=== PATIENT | male | born 1955 | race Caucasian/White ===

== ENCOUNTER 2017-12-19 17:55 | Observation (INO) | END 2017-12-21 13:00 | disposition home or self-care (01) ==

== ENCOUNTER 2018-07-18 00:27 | Inpatient (IN) | END 2018-07-19 20:40 | disposition left against medical advice (07) | DRG 313 ==

== ENCOUNTER 2018-08-23 07:22 | Day surgery (SDC) | END 2018-08-23 14:40 | disposition home or self-care (01) ==

== ENCOUNTER 2019-04-20 07:49 | Emergency (ER) | payer BC ==
[~2019-04-20] VITALS: Ht 170.2 cm; Wt 70.0 kg
[~2019-04-20 07:49] MED LIST: ASPI-817 PO; ASPI81TA52 PO; ATOR40TA68 PO; CARV12.579 PO; CLOP75TA27 PO; ERGO500013 PO; GABA300C16 PO; GLIP5TAB13 PO; LISI-471 PO; LORA10TA3 PO; METF100010 PO; NAPR-985 PO; ONDA4TAB8 PO
[2019-04-20 07:57] VITALS: Ht 170.2 cm; Wt 70.0 kg
--- NOTE | 2019-04-20 08:01 | ERD ---
ER Documentation Chief Complaint Chief Complaint HPI This is a 63-year-old man brought in by EMS from home for complaints of nausea, hypertension, chills occurring at home just prior to arrival. Symptoms lasted for about half an hour and then mostly resolved. Son who was at the bedside was mostly worried about his blood pressure going up while he was at home. Patient denied chest pain or shortness of breath, no fevers or chills, no vomiting or diarrhea, no complaints of headache or blurry vision. ROS All systems reviewed and are negative except as per history of present illness. Medications Home Meds Active Scripts Naproxen* (Naprosyn*) 500 Mg Tablet, 500 MG PO BID PRN for PAIN AND/OR INFLAMMATION, #30 TAB Prov:MERVIN LAYTON MD 04/20/19 Ondansetron Hcl* (Zofran*) 4 Mg Tablet, 4 MG PO Q8H PRN for NAUSEA AND/OR VOMITING, #30 TAB Prov:MERVIN LAYTON MD 04/20/19 Atorvastatin* (Atorvastatin*) 40 Mg Tablet, 40 MG PO QHS, #30 TAB Prov:TISH GUEVARA MD 12/21/17 Reported Medications Loratadine* (Loratadine*) 10 Mg Tablet, 10 MG PO DAILY, #30 TAB 08/23/18 Aspirin (Low Dose Aspirin) 81 Mg Tablet.dr, 81 MG PO DAILY, #30 TAB 08/23/18 Metformin Hcl* (Metformin Hcl*) 1,000 Mg Tablet, 1000 MG PO WITH BREAKFAST DINNE, #60 TAB 07/17/18 Gabapentin* (Gabapentin*) 300 Mg Capsule, 300 MG PO TID, #90 CAP 07/17/18 Ergocalciferol (Vitamin D2) (VITAMIN D2) 50,000 Unit Capsule, 86057 UNIT PO Q WED, CAP 07/17/18 Glipizide* (Glipizide*) 5 Mg Tablet, 5 MG PO TIDM A, TAB 07/17/18 Clopidogrel Bisulfate (Clopidogrel) 75 Mg Tablet, 75 MG PO DAILY, #30 TAB 12/19/17 Lisinopril* (Lisinopril*) 20 Mg Tablet, 20 MG PO DAILY, #30 TAB 12/19/17 Carvedilol* (Carvedilol*) 12.5 Mg Tablet, 12.5 MG PO BID, #60 TAB 12/19/17 Allergies Allergies: Coded Allergies: No Known Allergy (Unverified , 08/23/18) PMhx/Soc CAD with history of PTCA and stent placement, hypertension, dyslipidemia, cardiomyopathy with LVEF of 45%, diabetes mellitus, tobacco use, history of stroke with right upper extremity deficit History of Surgery: Yes ( hernia repair, cardiac) Anesthesia Reaction: No Hx Neurological Disorder: No Hx Respiratory Disorders: No Hx Cardiac Disorders: Yes (HTN, HEART ATTACK , CVA, ) Hx Psychiatric Problems: No Hx Miscellaneous Medical Probl: No Hx Alcohol Use: No Hx Substance Use: No Hx Tobacco Use: No FmHx Family History: No diabetes Physical Exam Vitals Vital Signs Date Temp Pulse Resp B/P (MAP) Pulse Ox O2 O2 Flow FiO2 Time Delivery Rate 04/20/19 97.7 74 18 185/88 99 07:57 (120) Per nurse's records Physical Exam GENERAL: Well-developed, well-nourished, well-hydrated, in no apparent distress, looks nontoxic in appearance NEURO: Alert and oriented 3, able to answer questions and follow commands, right upper extremity paresis, pupils equal round reactive to light CARDIAC: Regular rate and rhythm, no murmurs rubs or gallops LUNGS: Clear bilaterally no wheezing crackles or stridor ABDOMEN: Soft nontender, no guarding, no rigidity, no rebound, no psoas sign no obturator sign. SKIN: Warm and dry to touch, no abrasions, contusions, or hematomas, no lacera tions, no ecchymosis, no target lesions, and without ulcers Result Diagram: 04/20/19 0825 04/20/19 0825 Results 24 hrs Laboratory Tests Test 04/20/19 08:25 White Blood Count 6.5 10^3/ul Red Blood Count 4.67 10^6/ul Hemoglobin 13.8 g/dl Hematocrit 40.9 % Mean Corpuscular Volume 87.6 fl Mean Corpuscular Hemoglobin 29.6 pg Mean Corpuscular Hemoglobin Concent 33.7 g/dl Red Cell Distribution Width 12.9 % Platelet Count 221 10^3/UL Mean Platelet Volume 10.6 fl Immature Granulocytes % 0.300 % Neutrophils % 53.4 % Lymphocytes % 34.8 % Monocytes % 7.1 % Eosinophils % 3.9 % Basophils % 0.5 % Nucleated Red Blood Cells % 0.0 /100WBC Immature Granulocytes # 0.020 10^3/ul Neutrophils # 3.5 10^3/ul Lymphocytes # 2.3 10^3/ul Monocytes # 0.5 10^3/ul Eosinophils # 0.3 10^3/ul Basophils # 0.0 10^3/ul Nucleated Red Blood Cells # 0.0 10^3/ul Urine Color YELLOW Urine Clarity CLEAR Urine pH 8.0 Urine Specific [place] 1.012 Urine Ketones NEGATIVE mg/dL Urine Nitrite NEGATIVE mg/dL Urine Bilirubin NEGATIVE mg/dL Urine Urobilinogen NEGATIVE mg/dL Urine Leukocyte Esterase NEGATIVE Sixto/ul Urine Microscopic RBC 1 /HPF Urine Microscopic WBC 2 /HPF Urine Bacteria FEW /HPF Urine Hemoglobin NEGATIVE mg/dL Urine Glucose 3+ mg/dL Urine Total Protein 1+ mg/dl Sodium Level 141 mmol/L Potassium Level 4.8 mmol/L Chloride Level 100 mmol/L Carbon Dioxide Level 25 mmol/L Anion Gap 16 Blood Urea Nitrogen 21 mg/dl Creatinine 0.70 mg/dl Est Glomerular Filtrat Rate mL/min > 60 mL/min Glucose Level 320 mg/dl Calcium Level 10.5 mg/dl Total Bilirubin 0.5 mg/dl Direct Bilirubin 0.00 mg/dl Indirect Bilirubin 0.5 mg/dl Aspartate Amino Transf (AST/SGOT) 21 IU/L Alanine Aminotransferase (ALT/SGPT) 27 IU/L Alkaline Phosphatase 55 IU/L Troponin I 0.014 ng/ml Total Protein 8.7 g/dl Albumin 5.4 g/dl Globulin 3.30 g/dl Albumin/Globulin Ratio 1.63 Lipase 67 U/L Current Medications Medications Dose Sig/Matias Start Time Status Last (Trade) Ordered Route PRN Stop Time Admin Dose Reason Admin Sodium 1,000 ml @ Q1H STAT 04/20/19 DC 04/20/19 Chloride 1,000 mls/hr IV 08:05 04/20/19 08:39 09:04 Ondansetron 4 mg ONCE STAT 04/20/19 DC 04/20/19 HCl (Zofran IV 08:05 04/20/19 08:39 Inj) 08:06 Ketorolac 15 mg ONCE STAT 04/20/19 DC 04/20/19 Tromethamine IV 08:27 04/20/19 08:39 (Toradol) 08:28 Clonidine 0.1 mg ONCE ONCE 04/20/19 DC 04/20/19 (Catapres) PO 09:30 04/20/19 09:15 09:31 Procedures/MDM IV line was established patient was placed on quality assurance monitor chassis rhythm strip revealed a sinus rhythm at about 80 bpm with upright P and T waves. Patient was afebrile EKG performed, read by me: 76 bpm, normal sinus rhythm, normal axis, no acute ST segment changes, narrow QRS complex, with good R-wave progression in precordial leads. One AP view of the chest performed, read by me reveals no acute infiltrates, normal mediastinum, sharp costophrenic and cardiac borders, no air under the diaphragm. Otherwise unremarkable chest x-ray. I administered 500 cc normal saline IV and Zofran 4 mg IV. Patient later complained of low back pain I administered Toradol 15 mg IV, and for hypertension I administered clonidine 0.1 mg p.o. CBC was normal, electrolytes revealed dehydration, liver function tests normal, troponin negative, urinalysis unremarkable. Patient's blood pressure improved and he is asymptomatic now, vital signs are normal and he will be discharged to follow-up with PMD. Differential diagnoses considered, included but not limited to acute coronary syndrome, pulmonary embolism, aortic dissection, abdominal aortic aneurysm, sepsis, stroke, meningitis, encephalitis, pneumonia, appendicitis, cholec ystitis, bowel obstruction, pyelonephritis, nephrolithiasis, cystitis, as well as metabolic, hematologic, and electrolyte abnormalities. As well as abscess, cellulitis, fractures, and dislocations. Patient feels much better at this time, and vital signs are normal, symptoms have improved. I did give strict instructions to return to the ED if symptoms continue or worsen, patient will otherwise follow-up with primary care physician. Patient understood instructions and agreed to plan. Disclaimer: Inadvertent spelling and grammatical errors are likely due to EHR/dictation software use and do not reflect on the overall quality of patient care. Also, please note that the electronic time recorded on this note does not necessarily reflect the actual time of the patient encounter. Departure Diagnosis: Primary Impression: Hypertension Hypertension type: essential hypertension Qualified Codes: I10 - Essential (primary) hypertension Additional Impressions: Nausea Acute dehydration Condition: Good MERVIN LAYTON MD Apr 20, 2019 08:01
[2019-04-20] MEDS ORDERED: ONDANSETRON 4 MG INJ IV STA (08:05)
[2019-04-20] MEDS ORDERED: SOD CHLORIDE 0.9% 1,000 ML IV STA (08:05)
[2019-04-20] MEDS ORDERED: KETOROLAC 15 MG INJ IV STA (08:27)
[2019-04-20 10:00] VITALS: BP 154/85; PULSE 76; RESP 16
== END 2019-04-20 10:00 | disposition home or self-care (01) ==
LOC: E/R 07:49
DX: I10 Essential (primary) hypertension (principal); E86.0 Dehydration; E11.9 Type 2 diabetes mellitus without complications; I25.10 Atherosclerotic heart disease of native coronary artery without angina pectoris; Z79.01 Long term (current) use of anticoagulants; Z79.82 Long term (current) use of aspirin; Z86.73 Personal history of transient ischemic attack (TIA), and cerebral infarction without residual deficits; Z79.84 Long term (current) use of oral hypoglycemic drugs
CPT/HCPCS: 36415; 71045; 80053; 81001; 83690; 84484; 85025; 87086; 93005; 96361; 96374; 96375; 99285; J1885; J2405; J7030; Z7610

== ENCOUNTER 2019-04-21 01:51 | Inpatient (IN) | payer BC ==
[~2019-04-21] VITALS: Ht 170.2 cm; Wt 80.6 kg
[2019-04-21] MEDS ORDERED: SOD CHLORIDE 0.9% 1,000 ML IV STA (02:06)
[2019-04-21] MEDS ORDERED: HYDROmorphONE 1 MG/ML SYG IV STA (02:06)
[2019-04-21] MEDS ORDERED: ONDANSETRON 4 MG INJ IV STA (02:06)
--- NOTE | 2019-04-21 05:18 | ERD ---
ER Documentation Chief Complaint Chief Complaint ABD PAIN WITH N/V; SEEN EARLIER TODAY D/C 1200; DID NOT GET RXs HPI This is a 63-year-old male who was seen here this morning and discharged home. The patient said he is been having nausea vomiting throughout the day with right-sided abdominal and back pain. Patient says that he has had no hematuria no fever. No chest pain or shortness of breath. Here yesterday morning the patient received some fluids and pain medication and was discharged home. He said he continued to get worse so the pain is dull and sometimes sharp. He said he had nausea vomiting off and on for a day and a half ROS All systems reviewed and are negative except as per history of present illness. Medications Home Meds Active Scripts Naproxen* (Naprosyn*) 500 Mg Tablet, 500 MG PO BID PRN for PAIN AND/OR INFLAMMATION, #30 TAB Prov:MERVIN LAYTON MD 04/20/19 Ondansetron Hcl* (Zofran*) 4 Mg Tablet, 4 MG PO Q8H PRN for NAUSEA AND/OR VOMITING, #30 TAB Prov:MERVIN LAYTON MD 04/20/19 Atorvastatin* (Atorvastatin*) 40 Mg Tablet, 40 MG PO QHS, #30 TAB Prov:TISH GUEVARA MD 12/21/17 Reported Medications Loratadine* (Loratadine*) 10 Mg Tablet, 10 MG PO DAILY, #30 TAB 08/23/18 Aspirin (Low Dose Aspirin) 81 Mg Tablet.dr, 81 MG PO DAILY, #30 TAB 08/23/18 Metformin Hcl* (Metformin Hcl*) 1,000 Mg Tablet, 1000 MG PO WITH BREAKFAST DINNE, #60 TAB 07/17/18 Gabapentin* (Gabapentin*) 300 Mg Capsule, 300 MG PO TID, #90 CAP 07/17/18 Ergocalciferol (Vitamin D2) (VITAMIN D2) 50,000 Unit Capsule, 10266 UNIT PO Q WED, CAP 07/17/18 Glipizide* (Glipizide*) 5 Mg Tablet, 5 MG PO TIDM A, TAB 07/17/18 Clopidogrel Bisulfate (Clopidogrel) 75 Mg Tablet, 75 MG PO DAILY, #30 TAB 12/19/17 Lisinopril* (Lisinopril*) 20 Mg Tablet, 20 MG PO DAILY, #30 TAB 12/19/17 Carvedilol* (Carvedilol*) 12.5 Mg Tablet, 12.5 MG PO BID, #60 TAB 12/19/17 Allergies Allergies: Coded Allergies: No Known Allergy (Unverified , 08/23/18) PMhx/Soc History of Surgery: Yes ( hernia repair, cardiac) Anesthesia Reaction: No Hx Neurological Disorder: Yes (CVA) Hx Respiratory Disorders: No Hx Cardiac Disorders: Yes (HTN, HEART ATTACK ) Hx Psychiatric Problems: No Hx Miscellaneous Medical Probl: No Hx Alcohol Use: No Hx Substance Use: No Hx Tobacco Use: Yes Smoking Status: Former smoker FmHx Family History: No coronary disease Physical Exam Vitals Vital Signs Date Temp Pulse Resp B/P (MAP) Pulse Ox O2 O2 Flow FiO2 Time Delivery Rate 04/21/19 77 20 136/64 100 Nasal 2.0 05:23 (88) Cannula 04/21/19 98.3 77 20 146/83 100 Nasal 2.0 04:17 (104) Cannula 04/21/19 75 20 141/82 98 Room Air 02:00 (101) 04/21/19 99.0 73 19 156/82 100 01:54 (106) Physical Exam Const: Well-developed, well-nourished Head: Atraumatic, normocephalic Eyes: Normal Conjunctiva, PERRLA, EOMI, normal sclera, no nystagmus ENT: Normal External Ears, Nose and Mouth, moist mucus membranes. Neck: Full range of motion. No meningismus, no lymphadenopathy. Resp: Clear to auscultation bilaterally, no wheezing, rhonchi, rales Cardio: Regular rate and rhythm, no murmurs, S1 S2 present Abd: Soft, moderate right-sided abdominal tenderness in the mid abdomen, non distended. Normal bowel sounds, no guarding or rebound, no pulsitile abdominal masses or bruits Skin: No petechiae or rashes, no ecchymosis , no maculopapular rash Back: No midline or flank tenderness Ext: No cyanosis, or edema, FROM x 4, normal inspection, neurovascularly intact x 4 Neur: Awake and alert, STR 5/5 x 4, sensation intact x 4, no focal findings, cerebellum intact Psych: Normal Mood and Affect Result Diagram: 04/21/19 0155 04/21/19 0155 Results 24 hrs Laboratory Tests Test 04/21/19 01:55 04/21/19 04:53 04/21/19 05:15 White Blood Count 11.3 10^3/ul Red Blood Count 4.70 10^6/ul Hemoglobin 14.0 g/dl Hematocrit 41.0 % Mean Corpuscular Volume 87.2 fl Mean Corpuscular Hemoglobin 29.8 pg Mean Corpuscular 34.1 g/dl Hemoglobin Concent Red Cell Distribution Width 13.0 % Platelet Count 237 10^3/UL Mean Platelet Volume 10.6 fl Immature Granulocytes % 0.400 % Neutrophils % 80.8 % Lymphocytes % 11.0 % Monocytes % 5.5 % Eosinophils % 2.1 % Basophils % 0.2 % Nucleated Red Blood Cells % 0.0 /100WBC Immature Granulocytes # 0.050 10^3/ul Neutrophils # 9.1 10^3/ul Lymphocytes # 1.2 10^3/ul Monocytes # 0.6 10^3/ul Eosinophils # 0.2 10^3/ul Basophils # 0.0 10^3/ul Nucleated Red Blood Cells # 0.0 10^3/ul Sodium Level 138 mmol/L Potassium Level 4.6 mmol/L Chloride Level 101 mmol/L Carbon Dioxide Level 25 mmol/L Anion Gap 12 Blood Urea Nitrogen 19 mg/dl Creatinine 0.74 mg/dl Est Glomerular Filtrat > 60 mL/min Rate mL/min Glucose Level 222 mg/dl Calcium Level 9.8 mg/dl Total Bilirubin 0.8 mg/dl Direct Bilirubin 0.00 mg/dl Indirect Bilirubin 0.8 mg/dl Aspartate Amino 46 IU/L Transf (AST/SGOT) Alanine 33 IU/L Aminotransferase (ALT/SGPT) Alkaline Phosphatase 51 IU/L Total Protein 7.6 g/dl Albumin 4.7 g/dl Globulin 2.90 g/dl Albumin/Globulin Ratio 1.62 Lipase 55 U/L Urine Color STRAW Urine Clarity CLEAR Urine pH 5.0 Urine Specific [place] 1.033 Urine Ketones TRACE mg/dL Urine Nitrite NEGATIVE mg/dL Urine Bilirubin NEGATIVE mg/dL Urine Urobilinogen NEGATIVE mg/dL Urine Leukocyte Esterase NEGATIVE Sixto/ul Urine Microscopic RBC 3 /HPF Urine Microscopic WBC 2 /HPF Urine Hemoglobin 1+ mg/dL Urine Glucose 1+ mg/dL Urine Total Protein NEGATIVE mg/dl Bedside Urine pH (LAB) 5.0 Bedside Urine Protein (LAB) 1+ Bedside Urine Glucose (UA) 0.1% Bedside Urine Ketones (LAB) Trace Bedside Urine Blood Trace-intact Bedside Urine Nitrite (LAB) Negative Bedside Urine Leukocyte Esterase Negative (L Current Medications Medications Dose Sig/Matias Start Time Status Last (Trade) Ordered Route PRN Stop Time Admin Dose Reason Admin Sodium 1,000 ml @ Q1H STAT 04/21/19 DC 04/21/19 Chloride 1,000 mls/hr IV 02:06 04/21/19 02:18 03:05 1 mg ONCE STAT 04/21/19 DC 04/21/19 Hydromorphone IV 02:06 04/21/19 02:17 HCl 02:08 (Dilaudid) Ondansetron 4 mg ONCE STAT 04/21/19 DC 04/21/19 HCl (Zofran IV 02:06 04/21/19 02:17 Inj) 02:08 Procedures/[place] [id number] Radiology Main Line: [phone] DIAGNOSTIC IMAGING REPORT Patient: GERARDO BLUE : 1955 Age: 63 Sex: M MR #: [id number] DOS: 04/21/19 0206 Ordering MD: WILLIAM RICH DO Location: E/R Room/Bed: PROCEDURE: Ultrasound gallbladder CLINICAL INDICATION: abdominal pain TECHNIQUE: Jaime scale, color flow and Doppler ultrasound images of the abdomen. COMPARISON: None FINDINGS: Pancreas: Obscured by shadowing bowel gas. Liver: Demonstrates normal echotexture. No parenchymal lesions are identified. Normal directional flow toward the liver is demonstrated in the main portal vein. Gallbladder: Cholecystectomy. The gallbladder fossa is unremarkable. Biliary system: Common bile duct measures 7 mm diameter. No stones identified within the duct. No significant dilatation of the intrahepatic biliary system. Right Kidney: Measures 13.4 cm in length. No hydronephrosis, intrarenal calculus or abnormal perinephric fluid. Additional findings: None IMPRESSION: 1. Common bile duct slightly dilated for age, likely chronic postsurgical ectasia related to previous cholecystectomy. 2. No additional acute findings. RPTAT: [facility] Physician Erik Date Time Electronically viewed and signed by Physician Erik on 04/21/2019 03:20 xB/ CC: WILLIAM RICH DO [id number] [place] [id number] Radiology Main Line: [phone] DIAGNOSTIC IMAGING REPORT Patient: GERARDO BLUE : 1955 Age: 63 Sex: M MR #: [id number] DOS: 04/21/19 0206 Ordering MD: WILLIAM RICH DO Location: E/R Room/Bed: PROCEDURE: CT Abdomen and Pelvis with contrast. CLINICAL INDICATION: Right-sided abdominal pain TECHNIQUE: CT scan of the abdomen and pelvis with contrast was performed on a multi-detector high-resolution CT scanner. The patient was scanned following intravenous administration of 100 ml Omnipaque-300 nonionic contrast. Coronal and sagittal reformatted images obtained from the axial source images. Images were reviewed on a high-resolution PACS workstation. Exam CTDI 11.70 mGy Exam DLP 757.65 mGy-cm DICOM images are available. One or more of the following dose reduction techniques were utilized: 1.) Automated exposure control 2.) Adjustment of the mA +/- kV according to patient's size 3.) Use of iterative reconstruction technique. COMPARISON: None. FINDINGS: CT abdomen: LOWER THORAX: Lung bases are clear. LIVER AND GALLBLADDER: The liver is unremarkable. The gallbladder has been removed. SPLEEN: Normal. PANCREAS: Normal. ADRENAL GLANDS: Normal. KIDNEYS: There are multiple areas of diminished enhancement throughout the right renal parenchyma, most prominently involving the posterior and lateral cortex. Multiple small cortical cysts are identified. No hydronephrosis and no evidence of a perinephric abscess. There are small cortical cysts within the lateral aspect of the left kidney. Ureters as visualized are unremarkable. VASCULATURE: Atherosclerotic calcifications throughout the nondilated abdominal aorta. There are bilateral common iliac artery stents. LYMPH NODES: No significant retroperitoneal or mesenteric lymphadenopathy. BOWEL AND MESENTERY: Mild mucosal hyperenhancement throughout this stomach. Small bowel is unremarkable and there is no evidence for obstruction. A normal appendix is identified. Large bowel is unremarkable. CT pelvis: There is trace free fluid in the pelvis. The urinary bladder is unremarkable. No significant pelvic lymphadenopathy. Bones: Vacuum changes and disc degeneration at L5 S1. Small marginal osteophytes present in the lower thoracic and lumbar spine. IMPRESSION: 1. Multiple areas of diminished enhancement within the right kidney, most likely indicating pyelonephritis, differential includes renal infarct. No associated hydronephrosis or evidence of a perinephric abscess. 2. Mild mucosal hyperenhancement throughout the stomach, question gastritis. 3. Aortic and coronary atherosclerosis. Bilateral common iliac artery stents. 4. Post cholecystectomy. Results called to Dr. Rich at 4:35 am on 04/21/2019. RPTAT: [facility] Physician Erik Date Time Electronically viewed and signed by Physician Erik on 04/21/2019 04:41 xB/ CC: WILLIAM RICH DO [id number] The patient only has a few white cells in his urine and is unlikely he has Adi but it still possible. He could also have a renal infarct as I discussed this with the radiologist. Will admit to the hospital for IV antibiotics he may need further work-up for this renal infarct possibility. Departure Diagnosis: Primary Impression: Flank pain Additional Impressions: Pyelonephritis Renal infarct Condition: Stable WILLIAM RICH DO Apr 21, 2019 05:18
[2019-04-21] MEDS ORDERED: CEFTRIAXONE 1 GM/50 ML (PMX) 50 ML IVPB STA (05:29)
[2019-04-21] MEDS ORDERED: SOD CHLORIDE 0.9% 1,000 ML IV SCH (05:34)
[2019-04-21] MEDS: ONDANSETRON 4 MG INJ IV PRN ×2 (05:58→07:20)
[2019-04-21] MEDS ORDERED: ACETAMINOPHEN 325 MG TAB PO PRN (06:00)
[2019-04-21] MEDS ORDERED: SOD CHLORIDE 0.9% 100 ML ONE (06:17)
[2019-04-21] MEDS ORDERED: IOHEXOL 300MG/ML 150 ML BTL ONE (06:17)
[2019-04-21] MEDS: morphine 2 MG INJ IV PRN ×4 (07:21→23:27)
[2019-04-21 09:15] VITALS: BP_DIAS 73
[2019-04-21 09:20] VITALS: Ht 170.2 cm; Wt 80.6 kg
[2019-04-21] MEDS ORDERED: DEXTROSE 50% 50 ML SYRINGE IV PRN ×2 (10:00)
[2019-04-21] MEDS ORDERED: GLUCOSE GEL 15 GRAM TUBE PO PRN ×2 (10:00)
[2019-04-21] MEDS ORDERED: GLUCOSE GEL 15 GRAM TUBE BUCCAL PRN (10:00)
[2019-04-21] MEDS ORDERED: GLUCAGON 1 MG INJ IM PRN (10:00)
--- NOTE | 2019-04-21 13:16 | HP ---
Date/Time of Note Date/Time of Note DATE: 04/21/19 TIME: 13:15 Assessment/Plan VTE Prophylaxis Pharmacological prophylaxis: LMWH Lines/Catheters IV Catheter Type (from Nrs): Peripheral IV Urinary Cath still in place: No Assessment/Plan Hospital Course 1) UTI - IV antibiotics 2) diabetes - monitor blood sugar Result Diagram: 04/21/19 0155 04/21/19 0155 Results 24hrs Laboratory Tests Test 04/21/19 01:55 04/21/19 04:53 04/21/19 05:15 04/21/19 12:55 White Blood Count 11.3 #H Red Blood Count 4.70 Hemoglobin 14.0 Hematocrit 41.0 L Mean Corpuscular 87.2 Volume Mean Corpuscular 29.8 Hemoglobin Mean Corpuscular 34.1 Hemoglobin Concent Red Cell Distribution 13.0 Width Platelet Count 237 Mean Platelet Volume 10.6 H Immature Granulocytes 0.400 % Neutrophils % 80.8 H Lymphocytes % 11.0 L Monocytes % 5.5 Eosinophils % 2.1 Basophils % 0.2 Nucleated Red Blood 0.0 Cells % Immature Granulocytes 0.050 H # Neutrophils # 9.1 H Lymphocytes # 1.2 Monocytes # 0.6 Eosinophils # 0.2 Basophils # 0.0 Nucleated Red Blood 0.0 Cells # Sodium Level 138 Potassium Level 4.6 Chloride Level 101 Carbon Dioxide Level 25 Anion Gap 12 Blood Urea Nitrogen 19 Creatinine 0.74 Est Glomerular > 60 Filtrat Rate mL/min Glucose Level 222 H Calcium Level 9.8 Total Bilirubin 0.8 Direct Bilirubin 0.00 Indirect Bilirubin 0.8 Aspartate Amino 46 # Transf (AST/SGOT) Alanine 33 Aminotransferase (ALT /SGPT) Alkaline Phosphatase 51 Total Protein 7.6 # Albumin 4.7 Globulin 2.90 Albumin/Globulin 1.62 Ratio Lipase 55 Urine Color STRAW Urine Clarity CLEAR Urine pH 5.0 Urine Specific 1.033 H Kulm Urine Ketones TRACE A Urine Nitrite NEGATIVE Urine Bilirubin NEGATIVE Urine Urobilinogen NEGATIVE Urine Leukocyte NEGATIVE Esterase Urine Microscopic RBC 3 Urine Microscopic WBC 2 Urine Hemoglobin 1+ H Urine Glucose 1+ H Urine Total Protein NEGATIVE Bedside Urine pH 5.0 (LAB) Bedside Urine Protein 1+ H (LAB) Bedside Urine Glucose 0.1% H (UA) Bedside Urine Ketones Trace H (LAB) Bedside Urine Blood Trace-intact H Bedside Urine Nitrite Negative (LAB) Bedside Urine Negative Leukocyte Esterase (L Bedside Glucose 270 H HPI/ROS Admit Date/Time Admit Date/Time Apr 21, 2019 at 05:36 Hx of Present Illness Patient with hypertension and diabetes comes in with severe pain in right abdomen and flank. Patient was found to have pyelonephritis and admitted for antibiotics. PMH/Family/Social Past Medical History Medical History: diabetes, hypertension Medications Current Medications Sodium Chloride 1,000 ml @ 80 mls/hr [id number] IV Last administered on 04/21/19at 05:58; Admin Dose 80 MLS/HR; Start 04/21/19 at 05:34; Stop 04/21/19 at 18:03 Morphine Sulfate (morphine) 2 mg Q4 PRN IV PAIN LEVEL 7-10 Last administered on 04/21/19at 11:21; Admin Dose 2 MG; Start 04/21/19 at 07:30 Diagnostic Test (Pha) (Accu-Chek) 1 ea 02 XX ; Start 04/22/19 at 02:00 Insulin Aspart (Novolog Insulin Pen) NOVOLOG *MODERATE* ALGORITHM WITH MEALS BEDTIME SC ; Start 04/21/19 at 11:40 Miscellaneous Information 1 ea NOTE XX ; Start 04/21/19 at 10:00 Glucose (Glutose) 15 gm Q15M PRN PO DECREASED GLUCOSE; Start 04/21/19 at 10:00 Glucose (Glutose) 22.5 gm Q15M PRN PO DECREASED GLUCOSE; Start 04/21/19 at 10:00 Dextrose (D50w Syringe) 25 ml Q15M PRN IV DECREASED GLUCOSE; Start 04/21/19 at 10:00 Dextrose (D50w Syringe) 50 ml Q15M PRN IV DECREASED GLUCOSE; Start 04/21/19 at 10:00 Glucagon (Glucagen) 1 mg Q15M PRN IM DECREASED GLUCOSE; Start 04/21/19 at 10:00 Glucose (Glutose) 15 gm Q15M PRN BUCCAL DECREASED GLUCOSE; Start 04/21/19 at 10:00 Coded Allergies: No Known Allergy (Unverified , 04/21/19) Past Surgical History Past Surgical Hx: cholecystectomy Family History Significant Family History: no pertinent family hx Social History Smoking Status: Former smoker Exam/Review of Systems Vital Signs Vitals Vital Signs Date Temp Pulse Resp B/P (MAP) Pulse Ox O2 O2 Flow FiO2 Time Delivery Rate 8/5/19 98.6 86 138/73 98 Room Air 09:15 (94) 04/21/19 18 2.0 07:38 Exam Constitutional: well developed Head: normocephalic, atraumatic Neck: supple Respiratory: diminished breath sounds Cardiovascular: regular rate and rhythm Gastrointestinal: soft, non-tender Extremities: normal pulses MIRNA MILLS Apr 21, 2019 13:16
[2019-04-21] MEDS: INSULIN ASPART [NOVOLOG] 3 ML PEN SC SCH ×3 (13:51→21:00)
[2019-04-21] MEDS: ASPIRIN (EC) 81 MG TAB PO SCH (13:58)
[2019-04-21] MEDS: HYDROCODONE/APAP (5/325) TAB PO PRN ×2 (13:59→20:47)
[2019-04-21] MEDS: CLOPIDOGREL 75 MG TAB PO SCH (14:01)
[2019-04-21 15:38] VITALS: BP 138/61; PULSE 82; RESP 19
[2019-04-21] MEDS: metFORMIN 500 MG TAB PO SCH (18:16)
[2019-04-21] MEDS: SOD CHLORIDE 0.9% 1,000 ML IV SCH (18:58)
[2019-04-21 19:55] VITALS: BP 131/79; PULSE 81; RESP 18
[2019-04-22] MEDS: ACCU-CHEK XX SCH (02:00)
[2019-04-22 02:05] VITALS: BP 123/64; PULSE 82; RESP 18
[2019-04-22] MEDS: HYDROCODONE/APAP (5/325) TAB PO PRN ×3 (02:23→17:12)
[2019-04-22] MEDS: CEFTRIAXONE 1 GM/50 ML (PMX) 50 ML IVPB SCH (05:27)
[2019-04-22] MEDS: morphine 2 MG INJ IV PRN ×5 (05:30→22:04)
[2019-04-22] MEDS: SOD CHLORIDE 0.9% 1,000 ML IV SCH ×2 (07:30→12:53)
[2019-04-22 07:39] VITALS: BP 121/62; PULSE 72; RESP 19
[2019-04-22] MEDS: CLOPIDOGREL 75 MG TAB PO SCH (08:27)
[2019-04-22] MEDS: ASPIRIN (EC) 81 MG TAB PO SCH (08:27)
[2019-04-22] MEDS: LISINOPRIL 20 MG TAB PO SCH (08:28)
[2019-04-22] MEDS: INSULIN ASPART [NOVOLOG] 3 ML PEN SC SCH ×4 (08:29→21:00)
[2019-04-22] MEDS: glipiZIDE 5 MG TAB PO SCH (08:34)
[2019-04-22] MEDS: metFORMIN 500 MG TAB PO SCH ×2 (08:34→17:55)
--- NOTE | 2019-04-22 14:19 | PN ---
Date/Time of Note Date/Time of Note DATE: 04/22/19 TIME: 14:18 Assessment/Plan VTE Prophylaxis Risk score (from Ns)>0 risk: 2 SCD applied (from Ns): Yes Pharmacological prophylaxis: LMWH Lines/Catheters IV Catheter Type (from Nrs): [place] Urinary Cath still in place: No Assessment/Plan Hospital Course 1) UTI - IV antibiotics 2) diabetes - monitor blood sugar Result Diagram: 04/22/19 0425 04/22/19 0425 Results 24hrs Laboratory Tests Test 04/21/19 17:50 04/21/19 20:41 04/22/19 04:25 04/22/19 08:26 Bedside Glucose 232 H 185 202 White Blood Count 10.5 Red Blood Count 3.92 L Hemoglobin 11.7 L Hematocrit 35.0 L Mean Corpuscular Volume 89.3 Mean Corpuscular 29.8 Hemoglobin Mean Corpuscular 33.4 Hemoglobin Concent Red Cell Distribution 13.2 Width Platelet Count 186 # Mean Platelet Volume 10.7 H Immature Granulocytes % 0.600 H Neutrophils % 78.0 H Lymphocytes % 12.2 L Monocytes % 7.1 Eosinophils % 1.8 Basophils % 0.3 Nucleated Red Blood 0.0 Cells % Immature Granulocytes # 0.060 H Neutrophils # 8.2 H Lymphocytes # 1.3 Monocytes # 0.7 Eosinophils # 0.2 Basophils # 0.0 Nucleated Red Blood 0.0 Cells # Sodium Level 135 Potassium Level 4.2 Chloride Level 102 Carbon Dioxide Level 29 Anion Gap 4 #L Blood Urea Nitrogen 14 Creatinine 0.70 Est Glomerular Filtrat > 60 Rate mL/min Glucose Level 209 Calcium Level 8.6 Test 04/22/19 12:52 Bedside Glucose 149 Subjective 24 Hr Interval Summary Free Text/Dictation Patient's flank pain seems to be improved Exam/Review of Systems Exam Vitals Vital Signs Date Temp Pulse Resp B/P (MAP) Pulse Ox O2 O2 Flow FiO2 Time Delivery Rate 04/22/19 98.2 72 19 121/62 97 07:39 (81) 04/21/19 Room Air 09:15 04/21/19 2.0 07:38 Intake and Output 04/21/19 04/21/19 04/22/19 1515:00 23:00 07:00 IntakeIntake Total 1480 ml 150 ml BalanceBalance 1480 ml 150 ml Constitutional: well developed Head: normocephalic, atraumatic Neck: supple Respiratory: diminished breath sounds Cardiovascular: regular rate and rhythm Gastrointestinal: soft, non-tender Extremities: normal pulses Results Results 24hrs Laboratory Tests Test 04/21/19 17:50 04/21/19 20:41 04/22/19 04:25 04/22/19 08:26 Bedside Glucose 232 H 185 202 White Blood Count 10.5 Red Blood Count 3.92 L Hemoglobin 11.7 L Hematocrit 35.0 L Mean Corpuscular Volume 89.3 Mean Corpuscular 29.8 Hemoglobin Mean Corpuscular 33.4 Hemoglobin Concent Red Cell Distribution 13.2 Width Platelet Count 186 # Mean Platelet Volume 10.7 H Immature Granulocytes % 0.600 H Neutrophils % 78.0 H Lymphocytes % 12.2 L Monocytes % 7.1 Eosinophils % 1.8 Basophils % 0.3 Nucleated Red Blood 0.0 Cells % Immature Granulocytes # 0.060 H Neutrophils # 8.2 H Lymphocytes # 1.3 Monocytes # 0.7 Eosinophils # 0.2 Basophils # 0.0 Nucleated Red Blood 0.0 Cells # Sodium Level 135 Potassium Level 4.2 Chloride Level 102 Carbon Dioxide Level 29 Anion Gap 4 #L Blood Urea Nitrogen 14 Creatinine 0.70 Est Glomerular Filtrat > 60 Rate mL/min Glucose Level 209 Calcium Level 8.6 Test 04/22/19 12:52 Bedside Glucose 149 Medications Medication Current Medications Morphine Sulfate (morphine) 2 mg Q4 PRN IV PAIN LEVEL 7-10 Last administered on 04/22/19at 13:47; Admin Dose 2 MG; Start 04/21/19 at 07:30 Diagnostic Test (Pha) (Accu-Chek) 1 ea 02 XX ; Start 04/22/19 at 02:00 Insulin Aspart (Novolog Insulin Pen) NOVOLOG *MODERATE* ALGORITHM WITH MEALS BEDTIME SC Last administered on 04/22/19at 08:29; Admin Dose 4 UNIT; Start 04/21/19 at 11:40 Miscellaneous Information 1 ea NOTE XX ; Start 04/21/19 at 10:00 Glucose (Glutose) 15 gm Q15M PRN PO DECREASED GLUCOSE; Start 04/21/19 at 10:00 Glucose (Glutose) 22.5 gm Q15M PRN PO DECREASED GLUCOSE; Start 04/21/19 at 10:00 Dextrose (D50w Syringe) 25 ml Q15M PRN IV DECREASED GLUCOSE; Start 04/21/19 at 10:00 Dextrose (D50w Syringe) 50 ml Q15M PRN IV DECREASED GLUCOSE; Start 04/21/19 at 10:00 Glucagon (Glucagen) 1 mg Q15M PRN IM DECREASED GLUCOSE; Start 04/21/19 at 10:00 Glucose (Glutose) 15 gm Q15M PRN BUCCAL DECREASED GLUCOSE; Start 04/21/19 at 10:00 Ceftriaxone Sodium 50 ml @ 100 mls/hr Q24H IVPB Last administered on 04/22/19 05:27; Admin Dose 100 MLS/HR; Start 04/22/19 at 06:00 Acetaminophen/ Hydrocodone Bitart ([place] (5/325)) 1 tab Q6H PRN PO MODERATE PAIN LEVEL 4-6 Last administered on 04/22/19 08:34; Admin Dose 1 TAB; Start 04/21/19 at 13:30 Aspirin (Halfprin) 81 mg DAILY PO Last administered on 04/22/19 08:27; Admin Dose 81 MG; Start 04/21/19 at 13:30 Carvedilol (Coreg) 12.5 mg BID PO Last administered on 04/22/19 08:27; Admin Dose 12.5 MG; Start 04/21/19 at 21:00 Clopidogrel Bisulfate (plaVIX) 75 mg DAILY PO Last administered on 04/22/19 08:27; Admin Dose 75 MG; Start 04/21/19 at 13:30 Glipizide (Glucotrol) 5 mg AC BREAKFAST PO Last administered on 04/22/19 08:34; Admin Dose 5 MG; Start 04/22/19 at 07:20 Lisinopril (Zestril) 20 mg DAILY PO Last administered on 04/22/19 08:28; Admin Dose 20 MG; Start 04/22/19 at 09:00 Metformin HCl (Glucophage) 1,000 mg WITH BREAKFAST DINNE PO Last administered on 04/22/19 08:34; Admin Dose 1,000 MG; Start 04/21/19 at 17:55 Sodium Chloride 1,000 ml @ 80 mls/hr [id number] IV Last administered on 04/22/19at 12:53; Admin Dose 80 MLS/HR; Start 04/21/19 at 19:00 MIRNA MILLS 6, 2019 14:19
[2019-04-22 20:00] VITALS: BP 98/51; PULSE 75; RESP 17
[2019-04-23] MEDS: ACCU-CHEK XX SCH (02:00)
[2019-04-23] MEDS: morphine 2 MG INJ IV PRN ×3 (02:08→10:08)
[2019-04-23 02:10] VITALS: BP 125/68; PULSE 89; RESP 18
[2019-04-23] MEDS: ACETAMINOPHEN 325 MG TAB PO PRN ×2 (02:10→08:51)
[2019-04-23] MEDS: SOD CHLORIDE 0.9% 1,000 ML IV SCH ×2 (05:39→20:46)
[2019-04-23] MEDS: CEFTRIAXONE 1 GM/50 ML (PMX) 50 ML IVPB SCH (05:40)
[2019-04-23] MEDS: HYDROCODONE/APAP (5/325) TAB PO PRN ×3 (06:48→19:38)
[2019-04-23 07:10] VITALS: BP 112/51; PULSE 83; RESP 16
[2019-04-23] MEDS: INSULIN ASPART [NOVOLOG] 3 ML PEN SC SCH ×4 (07:50→20:49)
[2019-04-23] MEDS: CLOPIDOGREL 75 MG TAB PO SCH (08:50)
[2019-04-23] MEDS: ASPIRIN (EC) 81 MG TAB PO SCH (08:51)
[2019-04-23] MEDS: glipiZIDE 5 MG TAB PO SCH (08:51)
[2019-04-23] MEDS: LISINOPRIL 20 MG TAB PO SCH (08:52)
[2019-04-23] MEDS: metFORMIN 500 MG TAB PO SCH ×2 (08:58→18:03)
--- NOTE | 2019-04-23 11:08 | PN ---
Date/Time of Note Date/Time of Note DATE: 04/23/19 TIME: 11:08 Assessment/Plan VTE Prophylaxis Risk score (from Ns)>0 risk: 3 SCD applied (from Ns): Yes Pharmacological prophylaxis: LMWH Lines/Catheters IV Catheter Type (from [facility] Peripheral IV Urinary Cath still in place: No Assessment/Plan Hospital Course 1) UTI - IV antibiotics 2) diabetes - monitor blood sugar Result Diagram: 04/23/19 0236 04/23/19 0236 Results 24hrs Laboratory Tests Test 04/22/19 12:52 04/22/19 17:14 04/22/19 20:54 04/23/19 02:15 Bedside Glucose 149 127 124 Urine Color MISAEL Urine Clarity CLEAR Urine pH 5.0 Urine Specific [place] 1.023 Urine Ketones TRACE A Urine Nitrite NEGATIVE Urine Bilirubin NEGATIVE Urine Urobilinogen NEGATIVE Urine Leukocyte Esterase NEGATIVE Urine Microscopic RBC 1 Urine Microscopic WBC 2 Urine Squamous FEW Epithelial Cells Urine Mucus FEW A Urine Hemoglobin NEGATIVE Urine Glucose 1+ H Urine Total Protein 1+ H Test 04/23/19 02:35 04/23/19 02:36 04/23/19 08:31 Lactic Acid Level 1.0 White Blood Count 12.9 #H Red Blood Count 3.88 L Hemoglobin 11.6 L Hematocrit 35.1 L Mean Corpuscular Volume 90.5 Mean Corpuscular 29.9 Hemoglobin Mean Corpuscular 33.0 Hemoglobin Concent Red Cell Distribution 13.2 Width Platelet Count 189 Mean Platelet Volume 10.3 Immature Granulocytes % 0.500 H Neutrophils % 84.7 H Lymphocytes % 7.8 L Monocytes % 6.3 Eosinophils % 0.5 Basophils % 0.2 Nucleated Red Blood 0.0 Cells % Immature Granulocytes # 0.060 H Neutrophils # 10.9 H Lymphocytes # 1.0 Monocytes # 0.8 Eosinophils # 0.1 Basophils # 0.0 Nucleated Red Blood 0.0 Cells # Sodium Level 137 Potassium Level 4.3 Chloride Level 102 Carbon Dioxide Level 26 Anion Gap 9 # Blood Urea Nitrogen 20 Creatinine 0.91 Est Glomerular Filtrat > 60 Rate mL/min Glucose Level 137 # Calcium Level 8.6 Bedside Glucose 132 Subjective 24 Hr Interval Summary Free Text/Dictation Patient still have pain in right flank Exam/Review of Systems Exam Vitals Vital Signs Date Temp Pulse Resp B/P (MAP) Pulse Ox O2 O2 Flow FiO2 Time Delivery Rate 04/23/19 99.9 08:51 04/23/19 83 16 112/51 96 Room Air 07:10 (71) 04/21/19 2.0 07:38 Intake and Output 04/22/19 04/22/19 04/23/19 1515:00 23:00 07:00 IntakeIntake Total 1150 ml 200 ml 1200 ml BalanceBalance 1150 ml 200 ml 1200 ml Constitutional: well developed Head: normocephalic, atraumatic Neck: supple Respiratory: diminished breath sounds Cardiovascular: regular rate and rhythm Gastrointestinal: soft, non-tender Extremities: normal pulses Results Results 24hrs Laboratory Tests Test 04/22/19 12:52 04/22/19 17:14 04/22/19 20:54 04/23/19 02:15 Bedside Glucose 149 127 124 Urine Color MISAEL Urine Clarity CLEAR Urine pH 5.0 Urine Specific [place] 1.023 Urine Ketones TRACE A Urine Nitrite NEGATIVE Urine Bilirubin NEGATIVE Urine Urobilinogen NEGATIVE Urine Leukocyte Esterase NEGATIVE Urine Microscopic RBC 1 Urine Microscopic WBC 2 Urine Squamous FEW Epithelial Cells Urine Mucus FEW A Urine Hemoglobin NEGATIVE Urine Glucose 1+ H Urine Total Protein 1+ H Test 04/23/19 02:35 04/23/19 02:36 04/23/19 08:31 Lactic Acid Level 1.0 White Blood Count 12.9 #H Red Blood Count 3.88 L Hemoglobin 11.6 L Hematocrit 35.1 L Mean Corpuscular Volume 90.5 Mean Corpuscular 29.9 Hemoglobin Mean Corpuscular 33.0 Hemoglobin Concent Red Cell Distribution 13.2 Width Platelet Count 189 Mean Platelet Volume 10.3 Immature Granulocytes % 0.500 H Neutrophils % 84.7 H Lymphocytes % 7.8 L Monocytes % 6.3 Eosinophils % 0.5 Basophils % 0.2 Nucleated Red Blood 0.0 Cells % Immature Granulocytes # 0.060 H Neutrophils # 10.9 H Lymphocytes # 1.0 Monocytes # 0.8 Eosinophils # 0.1 Basophils # 0.0 Nucleated Red Blood 0.0 Cells # Sodium Level 137 Potassium Level 4.3 Chloride Level 102 Carbon Dioxide Level 26 Anion Gap 9 # Blood Urea Nitrogen 20 Creatinine 0.91 Est Glomerular Filtrat > 60 Rate mL/min Glucose Level 137 # Calcium Level 8.6 Bedside Glucose 132 Medications Medication Current Medications Morphine Sulfate (morphine) 2 mg Q4 PRN IV PAIN LEVEL 7-10 Last administered on 04/23/19at 10:08; Admin Dose 2 MG; Start 04/21/19 at 07:30 Diagnostic Test (Pha) (Accu-Chek) 1 ea 02 XX ; Start 04/22/19 at 02:00 Insulin Aspart (Novolog Insulin Pen) NOVOLOG *MODERATE* ALGORITHM WITH MEALS BEDTIME SC Last administered on 04/22/19at 08:29; Admin Dose 4 UNIT; Start 04/21/19 at 11:40 Miscellaneous Information 1 ea NOTE XX ; Start 04/21/19 at 10:00 Glucose (Glutose) 15 gm Q15M PRN PO DECREASED GLUCOSE; Start 04/21/19 at 10:00 Glucose (Glutose) 22.5 gm Q15M PRN PO DECREASED GLUCOSE; Start 04/21/19 at 10:00 Dextrose (D50w Syringe) 25 ml Q15M PRN IV DECREASED GLUCOSE; Start 04/21/19 at 10:00 Dextrose (D50w Syringe) 50 ml Q15M PRN IV DECREASED GLUCOSE; Start 04/21/19 at 10:00 Glucagon (Glucagen) 1 mg Q15M PRN IM DECREASED GLUCOSE; Start 04/21/19 at 10:00 Glucose (Glutose) 15 gm Q15M PRN BUCCAL DECREASED GLUCOSE; Start 04/21/19 at 10:00 Ceftriaxone Sodium 50 ml @ 100 mls/hr Q24H IVPB Last administered on 04/23/19at 05:40; Admin Dose 100 MLS/HR; Start 04/22/19 at 06:00 Acetaminophen/ Hydrocodone Bitart ([place] (5/325)) 1 tab Q6H PRN PO MODERATE PAIN LEVEL 4-6 Last administered on 04/23/19at 06:48; Admin Dose 1 TAB; Start 04/21/19 at 13:30 Aspirin (Halfprin) 81 mg DAILY PO Last administered on 04/23/19at 08:51; Admin Dose 81 MG; Start 04/21/19 at 13:30 Carvedilol (Coreg) 12.5 mg BID PO Last administered on 04/23/19at 08:52; Admin Dose 12.5 MG; Start 04/21/19 at 21:00 Clopidogrel Bisulfate (plaVIX) 75 mg DAILY PO Last administered on 04/23/19at 08:50; Admin Dose 75 MG; Start 04/21/19 at 13:30 Glipizide (Glucotrol) 5 mg AC BREAKFAST PO Last administered on 04/23/19 08:51; Admin Dose 5 MG; Start 04/22/19 at 07:20 Lisinopril (Zestril) 20 mg DAILY PO Last administered on 04/22/19 08:28; Admin Dose 20 MG; Start 04/22/19 at 09:00 Metformin HCl (Glucophage) 1,000 mg WITH BREAKFAST DINNE PO Last administered on 04/23/19 08:58; Admin Dose 1,000 MG; Start 04/21/19 at 17:55 Sodium Chloride 1,000 ml @ 80 mls/hr [id number] IV Last administered on 04/23/19 05:39; Admin Dose 80 MLS/HR; Start 04/21/19 at 19:00 Acetaminophen (Tylenol Tab) 650 mg Q6H PRN PO MILD PAIN(1-3)OR ELEVATED TEMP Last administered on 04/23/19 08:51; Admin Dose 650 MG; Start 04/23/19 at 02:00 MIRNA MILLS Apr 23, 2019 11:08
[2019-04-23] MEDS ORDERED: BARIUM SULF 2% 450 ML BTL (BERRY SMOOTHIE) PO ONE (13:00)
[2019-04-23] MEDS ORDERED: IOHEXOL 300MG/ML 150 ML BTL ONE (13:32)
[2019-04-23] MEDS ORDERED: SOD CHLORIDE 0.9% 100 ML ONE (13:32)
[2019-04-23 15:03] VITALS: BP 104/53; PULSE 80; RESP 18
[2019-04-23 19:15] VITALS: BP 145/65; PULSE 81; RESP 20
[2019-04-24] MEDS: morphine 2 MG INJ IV PRN ×5 (01:39→21:16)
[2019-04-24] MEDS: ACCU-CHEK XX SCH ×2 (01:49→20:23)
[2019-04-24 02:00] VITALS: BP 124/60; PULSE 80; RESP 20
[2019-04-24] MEDS: CEFTRIAXONE 1 GM/50 ML (PMX) 50 ML IVPB SCH (04:57)
[2019-04-24 07:23] VITALS: BP 139/62; PULSE 84; RESP 18
[2019-04-24] MEDS: INSULIN ASPART [NOVOLOG] 3 ML PEN SC SCH ×4 (07:50→20:22)
[2019-04-24] MEDS: ASPIRIN (EC) 81 MG TAB PO SCH (08:37)
[2019-04-24] MEDS: LISINOPRIL 20 MG TAB PO SCH (08:38)
[2019-04-24] MEDS: glipiZIDE 5 MG TAB PO SCH (08:38)
[2019-04-24] MEDS: metFORMIN 500 MG TAB PO SCH ×3 (08:38→17:55)
[2019-04-24] MEDS: CLOPIDOGREL 75 MG TAB PO SCH (08:38)
[2019-04-24] MEDS: ACETAMINOPHEN 325 MG TAB PO PRN (08:40)
[2019-04-24] MEDS: SOD CHLORIDE 0.9% 1,000 ML IV SCH ×2 (09:50→21:57)
--- NOTE | 2019-04-24 14:27 | PN ---
Date/Time of Note Date/Time of Note DATE: 04/24/19 TIME: 14:26 Assessment/Plan VTE Prophylaxis Risk score (from Nsg)>0 risk: 2 SCD applied (from Nsg): Yes Pharmacological prophylaxis: LMWH Lines/Catheters IV Catheter Type (from Nrsg): Peripheral IV Urinary Cath still in place: No Assessment/Plan Hospital Course 1) UTI - IV antibiotics 2) diabetes - monitor blood sugar Result Diagram: 04/23/19 0236 04/23/19 0236 Results 24hrs Laboratory Tests Test 04/23/19 17:59 04/23/19 20:49 04/24/19 01:32 04/24/19 08:37 Bedside Glucose 89 96 106 112 Test 04/24/19 12:46 Bedside Glucose 72 Subjective 24 Hr Interval Summary Free Text/Dictation Patient has no complaints Exam/Review of Systems Exam Vitals Vital Signs Date Temp Pulse Resp B/P (MAP) Pulse Ox O2 O2 Flow FiO2 Time Delivery Rate 04/24/19 98.5 09:50 04/24/19 84 18 139/62 97 Room Air 07:23 (87) 04/21/19 2.0 07:38 Intake and Output 04/23/19 04/23/19 04/24/19 1515:00 23:00 07:00 IntakeIntake Total 1330 ml 990 ml OutputOutput Total 350 ml 400 ml BalanceBalance 980 ml 590 ml Constitutional: well developed Head: normocephalic, atraumatic Neck: supple Respiratory: diminished breath sounds Cardiovascular: regular rate and rhythm Gastrointestinal: soft, non-tender Extremities: normal pulses Results Results 24hrs Laboratory Tests Test 04/23/19 17:59 04/23/19 20:49 04/24/19 01:32 04/24/19 08:37 Bedside Glucose 89 96 106 112 Test 04/24/19 12:46 Bedside Glucose 72 Medications Medication Current Medications Morphine Sulfate (morphine) 2 mg Q4 PRN IV PAIN LEVEL 7-10 Last administered on 04/24/19at 09:49; Admin Dose 2 MG; Start 04/21/19 at 07:30 Diagnostic Test (Pha) (Accu-Chek) 1 ea 02 XX ; Start 04/22/19 at 02:00 Insulin Aspart (Novolog Insulin Pen) NOVOLOG *MODERATE* ALGORITHM WITH MEALS BEDTIME SC Last administered on 04/22/19at 08:29; Admin Dose 4 UNIT; Start 04/21/19 at 11:40 Miscellaneous Information 1 ea NOTE XX ; Start 04/21/19 at 10:00 Glucose (Glutose) 15 gm Q15M PRN PO DECREASED GLUCOSE; Start 04/21/19 at 10:00 Glucose (Glutose) 22.5 gm Q15M PRN PO DECREASED GLUCOSE; Start 04/21/19 at 10:00 Dextrose (D50w Syringe) 25 ml Q15M PRN IV DECREASED GLUCOSE; Start 04/21/19 at 10:00 Dextrose (D50w Syringe) 50 ml Q15M PRN IV DECREASED GLUCOSE; Start 04/21/19 at 10:00 Glucagon (Glucagen) 1 mg Q15M PRN IM DECREASED GLUCOSE; Start 04/21/19 at 10:00 Glucose (Glutose) 15 gm Q15M PRN BUCCAL DECREASED GLUCOSE; Start 04/21/19 at 10:00 Ceftriaxone Sodium 50 ml @ 100 mls/hr Q24H IVPB Last administered on 04/24/19at 04:57; Admin Dose 100 MLS/HR; Start 04/22/19 at 06:00 Acetaminophen/ Hydrocodone Bitart ([place] (5/325)) 1 tab Q6H PRN PO MODERATE PAIN LEVEL 4-6 Last administered on 04/23/19 19:38; Admin Dose 1 TAB; Start 04/21/19 at 13:30 Aspirin (Halfprin) 81 mg DAILY PO Last administered on 04/24/19 08:37; Admin Dose 81 MG; Start 04/21/19 at 13:30 Carvedilol (Coreg) 12.5 mg BID PO Last administered on 04/24/19 08:38; Admin Dose 12.5 MG; Start 04/21/19 at 21:00 Clopidogrel Bisulfate (plaVIX) 75 mg DAILY PO Last administered on 04/24/19 08:38; Admin Dose 75 MG; Start 04/21/19 at 13:30 Glipizide (Glucotrol) 5 mg AC BREAKFAST PO Last administered on 04/24/19 08:38; Admin Dose 5 MG; Start 04/22/19 at 07:20 Lisinopril (Zestril) 20 mg DAILY PO Last administered on 04/24/19 08:38; Admin Dose 20 MG; Start 04/22/19 at 09:00 Metformin HCl (Glucophage) 1,000 mg WITH BREAKFAST DINNE PO Last administered on 04/24/19 08:38; Admin Dose 1,000 MG; Start 04/21/19 at 17:55 Sodium Chloride 1,000 ml @ 80 mls/hr [id number] IV Last administered on 04/24/19 09:50; Admin Dose 80 MLS/HR; Start 04/21/19 at 19:00 Acetaminophen (Tylenol Tab) 650 mg Q6H PRN PO MILD PAIN(1-3)OR ELEVATED TEMP Last administered on 04/24/19 08:40; Admin Dose 650 MG; Start 04/23/19 at 02:00 MIRNA MILLS Apr 24, 2019 14:27
[2019-04-24 15:05] VITALS: BP 118/58; PULSE 79; RESP 18
[2019-04-24] MEDS ORDERED: DOCUSATE SODIUM 100 MG CAP PO ONE (16:47)
[2019-04-24] MEDS: DOCUSATE SODIUM 100 MG CAP PO SCH (16:49)
[2019-04-24 17:27] VITALS: BP 135/90; PULSE 99; RESP 20
[2019-04-24 19:05] VITALS: BP 147/67; PULSE 76; RESP 20
[2019-04-24] MEDS ORDERED: ONDANSETRON 4 MG INJ IV PRN (20:30)
[2019-04-25] MEDS: morphine 2 MG INJ IV PRN ×2 (01:14→06:18)
[2019-04-25 02:00] VITALS: BP 134/62; PULSE 74; RESP 20
[2019-04-25] MEDS: CEFTRIAXONE 1 GM/50 ML (PMX) 50 ML IVPB SCH (05:21)
[2019-04-25] MEDS: ASPIRIN (EC) 81 MG TAB PO SCH (08:37)
[2019-04-25] MEDS: DOCUSATE SODIUM 100 MG CAP PO SCH (08:37)
[2019-04-25] MEDS: HYDROCODONE/APAP (5/325) TAB PO PRN (08:39)
[2019-04-25] MEDS: CLOPIDOGREL 75 MG TAB PO SCH (08:42)
[2019-04-25] MEDS: LISINOPRIL 20 MG TAB PO SCH (08:42)
[2019-04-25] MEDS: glipiZIDE 5 MG TAB PO SCH (10:54)
[2019-04-25] MEDS: metFORMIN 500 MG TAB PO SCH (10:54)
[2019-04-25] MEDS: INSULIN ASPART [NOVOLOG] 3 ML PEN SC SCH ×2 (10:55→11:40)
[2019-04-25] MEDS: SOD CHLORIDE 0.9% 1,000 ML IV SCH (11:51)
[2019-04-25 12:03] VITALS: BP 147/67; PULSE 73; RESP 20
--- NOTE | 2019-04-25 15:07 | DS ---
Date/Time of Note Date/Time of Note DATE: 04/25/19 TIME: 15:06 Discharge Summary Admission/Discharge Info Admit Date/Time Apr 21, 2019 at 05:36 Discharge Date/Time 04/25/19 Discharge Diagnosis 1) UTI 2) diabetes Patient Condition: Fair Consults none Procedures none Hx of Present Illness Patient with hypertension and diabetes comes in with severe pain in right abdomen and flank. Patient was found to have pyelonephritis and admitted for antibiotics. Hospital Course Patient with hypertension and diabetes comes in with severe pain in right abdomen and flank. Patient was found to have pyelonephritis and admitted for antibiotics. After several days, patient still has right flank pain but is improved. His fever resolved and white count stayed stable. Patient will be discharged on oral antibiotics and pain medicine. He will follow up with his regular physician. 1) UTI - IV antibiotics 2) diabetes - monitor blood sugar Home Meds Active Scripts Naproxen* (Naprosyn*) 500 Mg Tablet, 500 MG PO BID PRN for PAIN AND/OR INFL AMMATION, #30 TAB Prov:MERVIN LAYTON MD 04/20/19 Ondansetron Hcl* (Zofran*) 4 Mg Tablet, 4 MG PO Q8H PRN for NAUSEA AND/OR VOMITING, #30 TAB Prov:MERVIN LAYTON MD 04/20/19 Reported Medications Clopidogrel Bisulfate (Clopidogrel) 75 Mg Tablet, 75 MG PO DAILY, #30 TAB 04/21/19 Lisinopril* (Lisinopril*) 20 Mg Tablet, 20 MG PO DAILY, #30 TAB 04/21/19 Aspirin* (Aspirin* EC) 81 Mg Tablet., 81 MG PO DAILY, TAB 04/21/19 Carvedilol* (Carvedilol*) 12.5 Mg Tablet, 12.5 MG PO BID, #60 TAB 04/21/19 Glipizide* (Glipizide*) 5 Mg Tablet, 5 MG PO AC BREAKFAST, TAB 04/21/19 Metformin Hcl* (Metformin Hcl*) 1,000 Mg Tablet, 1000 MG PO WITH BREAKFAST DINNE, #60 TAB 04/21/19 Discontinued Reported Medications Loratadine* (Loratadine*) 10 Mg Tablet, 10 MG PO DAILY, #30 TAB 08/23/18 Aspirin (Low Dose Aspirin) 81 Mg Tablet., 81 MG PO DAILY, #30 TAB 08/23/18 Metformin Hcl* (Metformin Hcl*) 1,000 Mg Tablet, 1000 MG PO WITH BREAKFAST DINNE, #60 TAB 07/17/18 Gabapentin* (Gabapentin*) 300 Mg Capsule, 300 MG PO TID, #90 CAP 07/17/18 Ergocalciferol (Vitamin D2) (VITAMIN D2) 50,000 Unit Capsule, 31892 UNIT PO Q WED, CAP 07/17/18 Glipizide* (Glipizide*) 5 Mg Tablet, 5 MG PO TIDM A, TAB 07/17/18 Clopidogrel Bisulfate (Clopidogrel) 75 Mg Tablet, 75 MG PO DAILY, #30 TAB 12/19/17 Lisinopril* (Lisinopril*) 20 Mg Tablet, 20 MG PO DAILY, #30 TAB 12/19/17 Carvedilol* (Carvedilol*) 12.5 Mg Tablet, 12.5 MG PO BID, #60 TAB 12/19/17 Discontinued Scripts Atorvastatin* (Atorvastatin*) 40 Mg Tablet, 40 MG PO QHS, #30 TAB Prov:TISH GUEVARA MD 12/21/17 Primary Care Provider Not On Staff Doctor Pending Labs Laboratory Tests Test 04/24/19 17:42 04/24/19 20:16 04/25/19 04:34 04/25/19 10:52 Bedside 82 98 87 Glucose mg/dL (70-220) mg/dL (70-220) mg/dL (70-220) White Blood 10.6 Count 10^3/ul (4.8-1 0.8) Red Blood 3.55 Count 10^6/ul (4.70- 6.10) Hemoglobin 10.6 g/dl (14.0-18. 0) Hematocrit 32.4 % (42.0-52.0) Mean 91.3 Corpuscular fl (82.0-101.0 Volume ) Mean 29.9 Corpuscular pg (29.0-33.0) Hemoglobin Mean 32.7 Corpuscular g/dl (32.0-37. Hemoglobin Conc 0) ent Red Cell 12.9 Distribution % (11.5-14.5) Width Platelet Count 218 10^3/UL (140-4 15) Mean Platelet 10.2 Volume fl (7.4-10.4) Immature 0.500 Granulocytes % % (0.001-0.429 ) Neutrophils % 77.1 % (39.0-77.0) Lymphocytes % 13.6 % (15.0-51.0) Monocytes % 7.7 % (0.0-11.0) Eosinophils % 1.0 % (0.0-7.0) Basophils % 0.1 % (0.0-2.0) Nucleated Red 0.0 Blood Cells % /100WBC (0.0-0 .0) Immature 0.050 Granulocytes # 10^3/ul (0.0-0 .031) Neutrophils # 8.1 10^3/ul (1.6-7 .5) Lymphocytes # 1.4 10^3/ul (0.8-2 .9) Monocytes # 0.8 10^3/ul (0.3-0 .9) Eosinophils # 0.1 10^3/ul (0.0-0 .5) Basophils # 0.0 10^3/ul (0.0-0 .1) Nucleated Red 0.0 Blood Cells # 10^3/ul (0.0-0 .0) Sodium Level 137 mmol/L (135-14 4) Potassium 4.4 Level mmol/L (3.5-5. 1) Chloride Level 104 mmol/L (97-110 ) Carbon Dioxide 26 Level mmol/L (21-31) Anion Gap 7 (5-13) Blood Urea 14 Nitrogen mg/dl (7-20) Creatinine 0.64 mg/dl (0.61-1. 24) Est Glomerular > 60 Filtrat mL/min (>60) Rate mL/min Glucose Level 86 mg/dl (70-220) Calcium Level 8.0 mg/dl (8.4-10. 2) Test 04/25/19 12:45 Bedside 87 Glucose mg/dL (70-220) MIRNA MILLS Apr 25, 2019 15:07
[2019-04-25 15:15] VITALS: BP 131/64; PULSE 76; RESP 20
== END 2019-04-25 16:41 | disposition home or self-care (01) | DRG 690 ==
LOC: E/R 01:51 → MS1 05:36
PROVIDERS: ADMIT Internal Medicine; ATTEND Internal Medicine
DX: N12 Tubulo-interstitial nephritis, not specified as acute or chronic (principal); E11.9 Type 2 diabetes mellitus without complications; I10 Essential (primary) hypertension; Z79.84 Long term (current) use of oral hypoglycemic drugs; Z87.891 Personal history of nicotine dependence
CPT/HCPCS: 36415; 74177; 76705; 80048; 80053; 81001; 81003; 82962; 83605; 83690; 85025; 87086; 96361; 96374; 96375; 97161; J0696; J1170; J1815; J2270; J2405; J7030; Q9967